=== PATIENT | male | born 1975 | race Caucasian/White ===

== ENCOUNTER → 2019-05-17 | Outpatient (CLI) | payer SELFPAY ==
[2016-02-05 06:56] VITALS: BMI 33.6
[2019-05-17 12:56] LABS: Cholesterol 250 mg/dL (200); High Density Lipoprotein 36 mg/dL; Triglycerides 463 mg/dL
[2019-05-17 12:57] LABS: Hemoglobin A1c 13.1 % (4.2-6.3)
== END | disposition home or self-care (01) ==
PROVIDERS: Family Provider Family Medicine; PCP Family Medicine; Referring Provider Family Medicine; Visit Provider Family Medicine
DX: E11.65 Type 2 diabetes mellitus with hyperglycemia (principal)
CPT/HCPCS: 36415; 80061; 83036; 83525

== ENCOUNTER 2022-05-06 11:45 | Emergency (ER) | payer MEDICAID, SELFPAY ==
[2022-05-06 11:46] VITALS: BP 140/102; PULSE 100; RESP 18; TEMP 36.6; O2SAT 95; BMI 31.9
--- NOTE | 2022-05-06 12:30 | RAD_ITS ---
STUDY: X-RAY CHEST REASON FOR EXAM: Male, 46 years old. SOB TECHNIQUE: Single AP portable view of the chest. COMPARISON: Comparison is made with prior study of 01/29/2016. FINDINGS: There is evidence of increased markings at the lung bases with areas of confluence worse in the left lung base suggest some bibasilar infiltrates. Blunting of both costophrenic angles. Normal size heart. Normal mediastinum and mercy. Normal visualized pulmonary arteries. Normal visualized aortic arch and descending thoracic aorta. Normal visualized thoracic spine. Normal visualized ribs, clavicles, and shoulders. There is no demonstrated abnormality of the visualized soft tissue structures of the upper abdomen. RAD/Chest 1 View (Portable) IMPRESSION: Bibasilar infiltrates left greater than right with blunting of both costophrenic angles. Electronically Signed: Gumaro Angeles MD at 12:42 EDT ,
--- NOTE | 2022-05-06 12:35 | EKG12_ITS ---
Test Reason : Blood Pressure : / mmHG Vent. Rate : 110 BPM Atrial Rate : 110 BPM P-R Int : 126 ms QRS Dur : 100 ms QT Int : 366 ms P-R-T Axes : 051 010 075 degrees QTc Int : 495 ms Sinus tachycardia Nonspecific T wave abnormality Abnormal ECG Confirmed by MERCEDES ABBASI, BRUCE ([id number]), editorial manager GEMMA DINERO ([id number]) on 05/07/2022 10:11:34 AM Referred By: YENNY Confirmed By:BRUCE LONG MD
--- NOTE | 2022-05-06 12:36 | EDS_ITS ---
HPI History of Present Illness Chief Complaint: Shortness of Breath Narrative Narrative: Patient presents from urgent care with 2 months of cough that is essentially nonproductive, and a few weeks of shortness of breath with dyspnea on exertion. He also has orthopnea and states that he cannot lie flat to sleep. They went to urgent care today and it was reported that he had rales on his examination. He states he may have minor leg swelling but was referred to the emergency department because of the concern for congestive heart failure. Patient denies any chest pain. No fevers or chills, no other symptoms. He states that although his past medical history includes type 2 diabetes, his blood pressure has been borderline elevated but he does not take any medications for it. [facility] Medical History Diabetes Home Medications aspirin 81 mg PO DAILY@0800 01/29/15 [History Last Taken 02/05/16] insulin glargine [Lantus Solostar U-100 Insulin] 30 units SUBCUT DAILY 01/29/15 [History Last Taken 02/05/16] sitagliptin-metformin [Janumet] 1 tab PO DAILY 01/29/15 [History Last Taken Unknown] furosemide [Lasix] 40 mg PO DAILY 5 Days #5 tab 05/06/22 [Rx Last Taken Unknown] Allergy/AdvReac Type Severity Reaction Status Date / Time metformin Allergy Unknown Verified 05/06/22 11:48 mold Allergy Unknown Verified 05/06/22 11:48 pollen extracts Allergy Unknown Verified 05/06/22 11:48 dust Allergy Unknown Uncoded 05/06/22 11:48 Social History Smoking Status: Never smoker ROS ROS ED ROS Narrative Constitutional: No fever, no chills. HEENT: No sore throat. No neck pain. No loss of vision. No rhinorrhea. Cardiovascular: No chest pain. No palpitations. Minimal pedal edema. Respiratory: Positive cough, increasing shortness of breath. Orthopnea and dyspnea on exertion for weeks. Abdominal: No abdominal pain. No nausea. No vomiting. Genitourinary: No dysuria. No hematuria. Musculoskeletal: No myalgias. No arthralgias. Neurologic: No headaches. No dizziness. No lightheadedness. Skin: No rash. No change in color. Psychiatric: No depression. No anxiety. EXAM Physical Exam Narrative Exam Narrative: Afebrile. Vital signs noted. HEENT: Normocephalic. Atraumatic. PERRL, EOMI. Neck soft and supple. No point tenderness or step off. Cardiovascular: Regular rate and rhythm. No murmurs, rubs, or gallops a ppreciated. Respiratory: No tachypnea. Bibasilar rales. Gastrointestinal: Abdomen soft, nontender, with normoactive bowel sounds. No rebound or guarding. Neurological: Awake. Alert. Nonfocal, nonlateralizing. Skin: No rash. Normal color. No pallor. Musculoskeletal: Trace symmetric bilateral pedal edema. Full range of motion extremities. Const Vital Signs: 05/06/22 11:46 05/06/22 12:09 Temperature 98 F Temperature Source Temporal Pulse Rate 100 Respiratory Rate 18 Respiratory Effort Non-Labored Short of Breath Respiratory Depth Normal Respiratory Pattern Normal Blood Pressure 140/102 H Blood Pressure Mean 114 Pulse Ox 95 Oxygen Delivery Method Room Air MDM MDM MDM Narrative Medical decision making narrative: Concern is for congestive heart failure. Pulse ox 95% on room air without evidence of hypoxia. He denies any DVT or PE risk factors. He is not having any chest pain. He has no pleuritic pain. CHF work-up was pursued. EKG demonstrates sinus tachycardia at 110 bpm without ectopy or acute ST changes. Chest x-ray interpreted by myself demonstrates blunting of the costophrenic angles bilaterally, no pneumothorax. CBC is grossly normal with a normal white count of 7.2, hemoglobin normal at 14.9, hematocrit 44.9. Normal platelet count of 214. Electrolyte panel is grossly unremarkable with glucose elevated at 220 consistent with his diabetes, but he has a low anion gap of 2. LFTs show low AST of 11 but otherwise unremarkable. High-sensitivity troponin negative at 5. This is greater than a 6-hour troponin, and the patient was not necessarily experiencing any chest pain it was more the shortness of breath. BNP is elevated at 332.6. He ambulated in the emergency department his pulse ox was 98% on room air. At this point in time, I discussed the patient with his primary care provider, Dr. Black. He requested that patient be put on Lasix 40 mg for 5 days and he will follow-up with him and obtain further outpatient imaging or referral to pulmonology and/or cardiology as needed. I feel the patient can be discharged safely home with follow-up. Return instructions to the emergency department were reviewed. Disposition is discharged home in stable condition. Patient and are agreeable to the plan. Lab Data Attestation: I reviewed the patient's lab results. Labs: Laboratory Results - last 24 hr 05/06/22 05/06/22 05/06/22 12:45 12:45 12:45 WBC 7.2 RBC 5.24 Hgb 14.9 Hct 44.9 MCV 85.7 MCH 28.4 MCHC 33.2 RDW Std Deviation 38.6 RDW Coeff of Dusty 12.4 Plt Count 214 MPV 10.2 Immature Gran % (Auto) 0.400 Neut % (Auto) 68.3 Lymph % (Auto) 22.6 [place] % (Auto) 7.2 Eos % (Auto) 0.8 Baso % (Auto) 0.7 Absolute Neuts (auto) 4.9 Absolute Lymphs (auto) 1.63 Nucleated RBC % 0 Sodium 139 Potassium 4.3 Chloride 106 Carbon Dioxide 31.0 Anion Gap 2 L BUN 16 Creatinine 1.15 Estim Creat Clear Calc 77.65 Est GFR (MDRD) Af Amer 88 Est GFR (MDRD) Non-Af 73 BUN/Creatinine Ratio 13.9 Glucose 220 H Calcium 9.4 Total Bilirubin 0.80 AST 11 L ALT 22 Alkaline Phosphatase 47 Troponin I High Sens 5 B-Natriuretic Peptide 332.6 H Total Protein 7.8 Albumin 4.0 Globulin 3.8 Albumin/Globulin Ratio 1.1 Radiography Diagnostic Testing: Clinical Impression(s) from Imaging Studies Chest X-Ray 05/06/22 12:30 IMPRESSION: Bibasilar infiltrates left greater than right with blunting of both costophrenic angles. Electronically Signed: Gumaro Angeles MD at 12:42 EDT , Discharge Plan Triage Chief Complaint: Shortness of Breath ED Provider: Fan Cueto Dx/Rx/DC Orders Clinical Impression: SOB (shortness of breath), Dyspnea on exertion, Pleural effusion, Orthopnea, CHF (congestive heart failure) Instructions: ED Heart Failure, Congestive (CHF), ED Dyspnea, ED Pleural Effusion Prescriptions: New furosemide [Lasix] 40 mg tablet 40 mg PO DAILY 5 Days Qty: 5 RF: 0 No Action aspirin 81 MG tablet,chewable 81 mg PO DAILY@0800 RF: 0 sitagliptin-metformin [Janumet] 1 EACH tablet 1 tab PO DAILY RF: 0 insulin glargine [Lantus Solostar U-100 Insulin] 100 UNITS/ML insulin pen 30 units subcut DAILY RF: 0 Primary Care Provider: Levi Black Referrals: Levi Black DO [Primary Care Provider] - 3-5 Days Disposition Disposition: Home, Self Care
[2022-05-06 12:59] LABS: Absolute Lymphocyte Count 1.63 X10^3/uL (0.83-4.51); Absolute Neutrophil Count 4.9 X10^3/uL (2.0-7.7); Basophil# 0.05 X10^3/uL; Basophil% 0.7 % (0-1); Eosinophil# 0.06 X10^3/uL; Eosinophils% 0.8 % (0-5); Hematocrit 44.9 % (40-54); Hemoglobin 14.9 g/dL (13.0-16.5); Lymphocyte # 1.63 X10^3/ul (0.83-4.51); Lymphocyte % 22.6 % (19-41); Mean Corp Hgb Conc 33.2 g/dL (32-36); Mean Corpuscular Hgb 28.4 pg (27.0-32.0); Mean Corpuscular Volume 85.7 fL (80-94); Mean Platelet Vol. 10.2 fl (6.2-12.0); Monocyte# 0.52 X10^3/uL; Monocyte% 7.2 % (0-10); NRBC Flagged by Analyzer 0 % (0-5); Neutrophil # 4.92 X10^3/uL (2.7-7.7); Neutrophil % 68.3 % (47-70); Platelet Count 214 K/mm3 (150-450); RBC Distribution Width CV 12.4 % (11.6-14.6); RBC Distribution Width SD 38.6 fl (35.1-43.9); Red Blood Count 5.24 M/mm3 (4.6-6.2); White Blood Count 7.2 K/mm3 (4.4-11.0)
[2022-05-06 13:21] LABS: BNP,B-Type NATRIURETIC PEPTIDE 332.6 pg/mL (0-100)
[2022-05-06 13:24] LABS: ALB/GLOB Ratio 1.1 RATIO (0.9-2.4); AST(SGOT) 11 U/L (15-37); Alanine Aminotransfer ALT/SGPT 22 U/L (16-61); Alkaline Phosphatase 47 U/L (45-117); Anion Gap 2 (5-15); BUN 16 mg/dL (7-18); BUN/Creat Ratio 13.9 RATIO (10-20); Calcium,Total 9.4 mg/dL (8.5-10.1); Chloride 106 mmol/L (98-107); Creatinine, Serum 1.15 mg/dL (0.70-1.30); EST Glomerular Filtration Rate 73 mL/min (>60); Est Glom Filt Rate - Afr Amer 88 mL/min (>60); Estimated Creatinine Clearance 77.65 ml/min; Globulin 3.8 g/dL (2.2-4.2); Glucose 220 mg/dL (74-106); Potassium 4.3 mmol/L (3.5-5.1); Protein, Total 7.8 g/dL (6.4-8.2); Sodium Level 139 mmol/L (136-145); Troponin-I HS 5 pg/mL (3.0-78.0)
[2022-05-06 13:49] VITALS: O2SAT 95
[2022-05-06 15:23] VITALS: BP 138/69; PULSE 82; RESP 16; O2SAT 97
== END 2022-05-06 15:23 | disposition home or self-care (01) ==
PROVIDERS: Emergency Provider Emergency Medicine; PCP Family Medicine; Visit Provider Emergency Medicine
DX: I50.9 Heart failure, unspecified (principal); E11.9 Type 2 diabetes mellitus without complications; Z79.4 Long term (current) use of insulin; J90 Pleural effusion, not elsewhere classified; R06.01 Orthopnea; Z79.899 Other long term (current) drug therapy; Z79.82 Long term (current) use of aspirin
CPT/HCPCS: 71045; 80053; 83880; 84484; 85025; 87428; 93005; 99284; A4216

== ENCOUNTER → 2022-05-14 | Outpatient (CLI) | payer MEDICAID, SELFPAY ==
[2022-05-14 12:24] LABS: Anion Gap 7 (5-15); BUN 17 mg/dL (7-18); BUN/Creat Ratio 14.7 RATIO (10-20); Calcium,Total 9.2 mg/dL (8.5-10.1); Chloride 104 mmol/L (98-107); Creatinine, Serum 1.16 mg/dL (0.70-1.30); EST Glomerular Filtration Rate 72 mL/min (>60); Est Glom Filt Rate - Afr Amer 87 mL/min (>60); Glucose 283 mg/dL (74-106); Potassium 4.3 mmol/L (3.5-5.1); Sodium Level 139 mmol/L (136-145)
[2022-05-14 12:26] LABS: BNP,B-Type NATRIURETIC PEPTIDE 263.8 pg/mL (0-100)
== END | disposition home or self-care (01) ==
LOC: MTLAB 10:24
PROVIDERS: PCP Family Medicine; Referring Provider Family Medicine; Visit Provider Family Medicine
DX: I42.9 Cardiomyopathy, unspecified (principal); Z51.81 Encounter for therapeutic drug level monitoring
CPT/HCPCS: 36415; 80048; 83880

== ENCOUNTER → 2022-06-10 | Outpatient (CLI) | payer MEDICAID, SELFPAY ==
--- NOTE | 2022-06-10 13:35 | STEWCON_ITS ---
Reason For Study: Cardiomyopathy Stress Results Protocol: Diego Protocol WITH DEFINITY Maximum Predicted HR: 174 bpm Target HR: 148 bpm % Maximum Predicted HR: 89 % Heart Stage Duration Rate BP Comment (mm:ss) (bpm) Baseline 85 118/70patient denies chest pain Stage 1 3:00 107 122/70Patient denies chest pain Stage 2 3:00 125 144/74Patient denies chest pain Stage 3 3:00 151 156/82Patient denies chest pain Patient complains of shortness of breath and leg fatigue. Patient Stage 4 0:30 155 / denies chest pain Recovery 103 128/76Pt denies chest pain Stress Duration: 9:30 mm:ss Maximum Stress HR: 155 bpm METS: 11 Baseline Echocardiogram Findings Stress Echo Wall motion Data Resting WM Intermediate WM Stress WM Resting Wall Motion Wall Motion Stress Anterio-Basal: Hypokinetic. Anterio-Basal: Normal. Lateral-Basal: Hypokinetic. Lateral-Basal: Normal. Posterior-Basal: Hypokinetic. Posterior-Basal: Normal. Infero-Basal: Hypokinetic. Infero-Basal: Normal. Basal inferoseptal: Hypokinetic. Basal inferoseptal: Normal. Basal anteroseptal: Hypokinetic. Basal anteroseptal: Normal. Mid-Anterior : Hypokinetic. Mid-Anterior : Severely Mid-Lateral : Hypokinetic. Hypokinetic. Mid-Posterior: Hypokinetic. Mid-Lateral : Severely Mid-Inferior: Hypokinetic. Hypokinetic. Mid-inferoseptal : Hypokinetic. Mid-Posterior: Severely Mid-anteroseptal : Hypokinetic. Hypokinetic. Anterior [place] : Hypokinetic. Mid-Inferior: Severely Inferior [place] : Hypokinetic. Hypokinetic. Lateral [place] : Hypokinetic. Mid-inferoseptal : Severly Septall [place] : Hypokinetic. Hypokinetic. Ejection Fraction 30 %. Mid-anteroseptal : Severly Hypokinetic. Anterior [place] : Severly Hypokinetic. Inferior [place] : Severly Hypokinetic. Lateral [place] : Severly Hypokinetic. Septall [place] : Severly Hypokinetic. Ejection Fraction 20 %. Stress Results Heart rate response: Technically adequate (percent predicted maximal heart rate greater than 85%) Blood pressure response: Normal resting blood pressure-appropriate response Cardiac rhythm: Rare PVC during exercise and recovery Functional capacity: Good Stopped secondary to: Dyspnea/leg fatigue. EKG Data Baseline ECG: Sinus rhythm; diffuse nonspecific ST/T wave abnormality. Peak exercise EC to [address] segment depression in leads II, 3, aVF, with gradual resolution towards baseline in recovery. Symptoms with Stress No complaint of chest discomfort during exercise or recovery. ECHO/Stress Test Echo W/Contrast Interpretation Summary Contrast injection performed Abnormal (technically adequate: Percent predicted maximal heart rate greater th an 85%) stress echocardiogram Ordering Physician: Levi Black Referring Physician: Levi Black Performed By: Damari Montgomery RDCS
== END | disposition home or self-care (01) ==
LOC: CVS 13:33
PROVIDERS: PCP Family Medicine; Referring Provider Family Medicine; Visit Provider Family Medicine
DX: R06.00 Dyspnea, unspecified (principal); I51.9 Heart disease, unspecified
CPT/HCPCS: 93350; 93017; Q9957; A4216; C8928

== ENCOUNTER → 2022-06-12 | Outpatient (CLI) | payer MEDICAID, SELFPAY ==
[2022-06-12 17:37] LABS: Absolute Lymphocyte Count 1.78 X10^3/uL (0.83-4.51); Absolute Neutrophil Count 5.5 X10^3/uL (2.0-7.7); Basophil# 0.09 X10^3/uL; Basophil% 1.1 % (0-1); Eosinophil# 0.43 X10^3/uL; Eosinophils% 5.2 % (0-5); Hematocrit 45.2 % (40-54); Hemoglobin 14.8 g/dL (13.0-16.5); Lymphocyte # 1.78 X10^3/ul (0.83-4.51); Lymphocyte % 21.4 % (19-41); Mean Corp Hgb Conc 32.7 g/dL (32-36); Mean Corpuscular Hgb 28.1 pg (27.0-32.0); Mean Corpuscular Volume 85.8 fL (80-94); Mean Platelet Vol. 10.5 fl (6.2-12.0); Monocyte# 0.51 X10^3/uL; Monocyte% 6.1 % (0-10); NRBC Flagged by Analyzer 0 % (0-5); Neutrophil # 5.46 X10^3/uL (2.7-7.7); Neutrophil % 65.8 % (47-70); Platelet Count 199 K/mm3 (150-450); RBC Distribution Width CV 12.7 % (11.6-14.6); RBC Distribution Width SD 39.5 fl (35.1-43.9); Red Blood Count 5.27 M/mm3 (4.6-6.2); White Blood Count 8.3 K/mm3 (4.4-11.0)
[2022-06-12 18:28] LABS: Anion Gap 4 (5-15); BUN 21 mg/dL (7-18); BUN/Creat Ratio 18.8 RATIO (10-20); Calcium,Total 9.6 mg/dL (8.5-10.1); Chloride 106 mmol/L (98-107); Creatinine, Serum 1.12 mg/dL (0.70-1.30); EST Glomerular Filtration Rate 75 mL/min (>60); Est Glom Filt Rate - Afr Amer 90 mL/min (>60); Glucose 151 mg/dL (74-106); Potassium 3.8 mmol/L (3.5-5.1); Sodium Level 140 mmol/L (136-145); Thyroid Stim Hormone (TSH) 1.53 uIU/mL (0.358-3.74)
== END | disposition home or self-care (01) ==
LOC: LAB 16:56
PROVIDERS: PCP Family Medicine; Referring Provider Internal Medicine Cardiovascular Disease; Visit Provider Internal Medicine Cardiovascular Disease
DX: I42.8 Other cardiomyopathies (principal); I10 Essential (primary) hypertension; E78.5 Hyperlipidemia, unspecified
CPT/HCPCS: 36415; 80048; 84443; 85025

== ENCOUNTER 2022-06-16 09:22 | Observation (INO) | payer MEDICAID, SELFPAY ==
[2022-06-13 10:01] VITALS: BMI 30.7
[2022-06-16] VITALS (15 sets, daily range): BP systolic 89–103; BP diastolic 69–82; PULSE 80–98; RESP 12–16; TEMP 36.4–36.9; O2SAT 93–98; BMI 29.5
--- NOTE | 2022-06-16 08:27 | CL.D_ITS ---
Patient Name: CARLOZ GUERRERO Study Date: 06/16/2022 Performing: Leighton Person MD Ht: 68.11 inches 173 cm : 1975 Wt: 202.83 lbs 92 kg Age: 46 Gender: male BSA: 2.06 PROCEDURE(S) PERFORMED [id number]-([id number])LHC/COR/LV CLINICAL PROFILE AND INDICATIONS Indications: LV Dysfunction Heart Failure: NYHA Class: 2, Newly Diagnosed: Yes, Heart Failure Type: Systolic Stress/Imaging Stress Echocardiogram: Yes Result: Positive High RiskStress Echocardiogram: Positi ve High Risk CAD Presentations: Other: sob CONCLUSIONS Severe [place] vessel disease with significant three-vessel stenosis mild calcification and severe lef t ventricular systolic dysfunction. RECOMMENDATIONS Referred for immediate PCI DESCRIPTION OF PROCEDURE The patient arrived to the procedure lab. The risks and benefits of the procedure as well as a full d escription of our services here and current unavailability of surgical backup were fully explained to the patient and/or their significant other prior to the catheterization. The Timeout was completed, verifying the correct patient and procedure. The patient's procedural site was prepped and draped in the usual fashion. Local anesthetic was given subcutaneously to right radial region with Lidocaine 2% . Using a modified Seldinger technique, arterial access was obtained via the right radial artery, a 6 Fr sheath was inserted. Left Coronary Artery selective angiography was performed in multiple views u sing a 5 Fr. 4.0 [place] catheter. Right Coronary Artery selective angiography was then performed in mu ltiple views using a 5 Fr. 4.0 [place] catheter. Left Ventriculography was performed in GRANADOS projection using a 5 Fr. Pigtail catheter. LV to AO pullback pressures were then recorded. CORONARY ANGIOGRAPHY DOMINANCE: Co- Dominant LEFT HEART ASSESSMENT Left Ventricular Ejection Fraction: by LV Gram 20 % Global Hypokinesis - Severe Depressed Left Ventricular systolic function LEFT MAIN: Angiographically normal LEFT ANTERIOR DESCENDING ARTERY: Moderately diseased in the proximal and mid segment in the mid to di stal segment with a 70% long stenosis. CIRCUMFLEX ARTERY: Mid segment with a 70% stenosis prior to the takeoff of of the obtuse marginal bra [facility]. RIGHT CORONARY ARTERY: Small vessel with a distal 60-70% stenosis noted. COMPLICATIONS No Complications PROCEDURE MEDICATIONS Versed 1 mg IV Fentanyl 50 mcg IV Versed 1 mg IV Oxygen: 2 L/min via nasal cannula Brilinta 180 mg PO @ 06/16/2022 08:20:14 Heparin given IA 06/16/2022 08:01:29 Heparin 4000 unit(s) IV 06/16/2022 08:42:59 Nitro 100 mcg IC 06/16/2022 09:08:03 Verapamil 2.5mg, Ntg 100mcgs, 2000 units of Heparin given IA 06/16/2022 08:01:29 SUMMARY OF HEMODYNAMIC DATA Time AIR REST ECG 07:11:21 ECG 07:40:09 AO 86/66 (75) SA 08:04:32 LV 93/7, 10 08:14:20 LV 92/10, 13 08:14:23 LV 92/12, 15 08:15:24 LV 91/12, 15 08:15:27 LVp 91/12, 16 08:15:32 AOp 93/67 (78) 08:15:39 Signed By Leighton Person MD On 06/16/2022 9:21:13 AM Leighton Person MD
[2022-06-16] MEDS: Insulin Glargine-YFGN 100 UNIT/ML Pen 70 UNIT SC (11:31)
[2022-06-16] MEDS: Atorvastatin Calcium 20 MG Tablet PO (11:31)
[2022-06-16] MEDS: Furosemide 40 MG Tablet PO (11:31)
[2022-06-16] MEDS: LINAGLIPTIN 5 MG TABLET PO (11:31)
[2022-06-16] MEDS: Empagliflozin 10 MG Tablet PO (11:32)
--- NOTE | 2022-06-16 11:34 | CRPHASE1 ---
Patient Communication Former Patient:: Phase II PHII Cardiac Rehab Discussed with Patient:: Yes Guide to Cardiac Rehab Given to Patient:: Yes Cardiac Rehab Facility Choice List Given to Patient:: Yes Choice Program [facility] CR PHII:: Communication Given to CR, Refer to [facility] Soa Architect:: Adelaida Farfan Refer Phase II Cardiac Rehab:: Yes Sessions:: 36 sessions - 3 days/wk, 12 weeks PHII Cardiac Rehab Referral:: [facility] Cardiac Rehabilitation Info Cardiac Rehabilitation Program Information: Cardiac Rehabilitation is important for patients like you who are recovering from a heart problem. Cardiac rehabilitation programs are recognized as integral to the continued care of the patient with coronary heart disease. The cardiac rehabilitation program is designed to optimize a patient's physical, psychological, and social functioning. Health inpatient care manager rn work in cardiac rehabilitation programs and assist you with getting the treatments you need to get stronger and healthier - like exercise, healthy eating habits, and medications. Cardiac rehabilitation has been show to help people with heart problems live longer and have better life enjoyment than people who do not go to cardiac rehabilitation. Please contact the Cardiac Rehabilitation Program at [facility] at in two weeks if you have not heard from them.
--- NOTE | 2022-06-16 11:35 | CRPH1.INST_ITS ---
General Education CAD and cardiac anatomy and function:: Patient communicates acknowledgment, Family communicates acknowledgment Explanation of diagnoses and procedures:: Patient communicates acknowledgment, Family communicates acknowledgment Sign/Symptoms of NH:: Patient communicates acknowledgment, Family communicates acknowledgment Antiplatelet therapy: Patient communicates acknowledgment, Family communicates acknowledgment Proper use of NTG-SL: Patient communicates acknowledgment, Family communicates acknowledgment Emergency procedures and activation of EMS: Patient communicates acknowledgment, Family communicates acknowledgment Compliance of all prescribed medications: Patient communicates acknowledgment, Family communicates acknowledgment Smoking Patient Nicotine/Smoking Risk Factors Are:: Non-smoker Dyslipidemia Patient Dyslipidemia Risk Factors Are:: Total Cholesterol, Triglycerides, HDL, LDL Recommendations Include:: Lipid profile not available, Reviewed NCEP/ATP guidelines, Therapeutic Lifestyle Change dietary guidelines Dyslipidemia Response Code:: Patient communicates acknowledgment, Family communicates acknowledgment Overweight/Obesity Patient Overweight/Obesity Risk Factors Are:: Overweight = 26-29 Recommendations Include:: Weight loss of 5-10%, Reduced calorie diet, Exercise 5-7 times/week Overweight/Obesity:: Patient communicates acknowledgment, Family communicates acknowledgment Hypertension Recommendations Include:: Maintain BP <130/85, BP <130/80 if diabetic, DASH dietary guidelines, Decrease/maintain normal body weight, Moderation of ETOH Hypertension:: Patient communicates acknowledgment, Family communicates acknowledgment Heart Disease Patient Heart Disease Risk Factors Are:: Family history of heart disease < 65 years old Recommendations Include:: Educated family members of their risk, Educated family members of importance of prevention of heart disease Heart Disease Response Code:: Patient communicates acknowledgment, Family communicates acknowledgment Diabetes Patient Diabetes Risk Factors Are:: Elevated blood sugars Recommendations Include:: Maintain fasting blood sugars 70-110 md/dL, Maintain H gbA1c of 6% or less, Monitor blood sugar as prescribed, Diabetic dietary guidelines, Decrease/maintain body weight Diabetes:: Patient communicates acknowledgment, Family communicates acknowledgment Metabolic Syndrome Patient Metabolic Syndrome Risk Factors Are [3 of 5]:: Fasting blood sugar > 100 mg/dL, Waist circumference > 35 [female] or 40 [male], High triglyceride >150, Hypertension, Low HDL <40 [male] or < 50 [female] Recommendations Include:: Reinforce compliance to risk factor modifications, Patient is diabetic, Encouraged follow-up with Primary Care Physician Metabolic Syndrome Response Code:: Patient communicates acknowledgment, Family communicates acknowledgment Sedentary Patient Sedentary Risk Factors Are:: Lack of regular exercise Recommendations Include:: Aerobic exercise 5-7 times/week for 20-30 minutes continuously, Benefits of regular exercise, Discussed home walking program, Monitored Outpatient Cardiac Rehab Sedentary Response Code:: Patient communicates acknowledgment Stress Recommendations Include:: Identification of stressors, and assessment of coping skills, Stress management techniques Stress Response Code:: Patient communicates acknowledgment, Family communicates acknowledgment
[2022-06-16 12:05] LABS: Bedside Glucose 107 mg/dL (74-106)
[2022-06-16] MEDS: Carvedilol 3.125 MG TABLET PO ×2 (12:07→22:22)
--- NOTE | 2022-06-16 12:46 | CL.I_ITS ---
Patient Name: CARLOZ GUERRERO Study Date: 06/16/2022 Performing: Danyell Farfan MD Ht: 68 inches 173 cm : 1975 Wt: 203.1 lbs 92 kg Age: 46 Gender: male BSA: 2.06 PROCEDURE(S) PERFORMED IC12-([id number])MEENU W/WO PTCA, SINGLE CORONARY ARTERY IC12-([id number])MEENU W/WO PTCA, SINGLE CORONARY ARTERY CLINICAL PROFILE AND CO-MORBIDITIES Indications: LV Dysfunction Heart Failure: NYHA Class: 2, Newly Diagnosed: Yes, Heart Failure Type: Systolic Stress/Imaging Stress Echocardiogram: Yes Result: Positive High Risk Stress Echocardiogram: Posit denisa High Risk CAD Presentations: Other: sob CONCLUSIONS Successful PCI of mLCx and dRCA with MEENU RECOMMENDATIONS Pt. should return for PCI of LAD in 2-4 weeks DESCRIPTION OF PROCEDURE The patient arrived to the procedure lab. The risks and benefits of the procedure as well as a full d escription of our services here and current unavailability of surgical backup were fully explained to the patient and/or their significant other prior to the catheterization. The Timeout was completed, verifying the correct patient and procedure. The patient's procedural site was prepped and draped in the usual fashion. Local anesthetic was given subcutaneously to right radial region with Lidocaine 2% Using a modified Seldinger technique,arterial access was obtained via the right radial artery, a 6Fr sheath was inserted. Left Coronary Artery selective angiography was performed in multiple views usin g a 5 Fr. 4.0 [place] catheter. Right Coronary Artery selective angiography was then performed in multi ple views using a 5 Fr. 4.0 [place] catheter. Left Ventriculography was performed in GRANADOS projection usi ng a 5 Fr. Pigtail catheter. LV to AO pullback pressures were then recorded.The images were reviewed and options discussed. A decision was then made to proceed with an Intervention, IVUS o r other adjunct procedure. xb3 Guide catheter was inserted and engaged into the LCA. bmw Guide wire was advanced to the Circ umflex. Angiogram performed pre balloon dilatation. emerge 2.5 x 12 Balloon catheter was advanced acr oss lesion in the circumflex, mid. PTCA balloon inflated at 10 atms for 14 secs. osiro 3.0 x 1 3 Drug Eluting stent was advanced across the lesion in the circumflex, mid. Angiogram performed post stent deployment. jr 4 Guide catheter was inserted and engaged into the RCA. bmw Guide wire was advanced to the RCA. emerge 2.00 x 15 Balloon catheter was advanced across lesion in the right coronary, distal. PTCA balloon inflated at 6 atms for 8 secs. PTCA balloon inflated at 6 atms for 21 secs. osiro 2.25 x 18 Drug Eluting stent was advanced across the lesion in the right coronary, distal. Angiogram perfo rmed post stent deployment. nc emerge 2.5 x 12 Balloon catheter was inserted post stent. Angiogram pe rformed post balloon dilatation. The arterial sheath was pulled and a TR Band was applied for hemostasis INTERVENTION INFORMATION LESION SITE: Circumflex (Mid) Lesion Complexity: High/C, chronic total occlusion: No, lesion at bifurcation: No, thrombus present: No, lesion length: 12 mm, culprit lesion: Yes, Previously treated lesion: No Pre Stenosis: 80 % Pre intervention RAFIA flow: 3 PROCEDURE: Drug Eluting Stent with pre dilatation. Post Stenosis: 0 % Post intervention RAFIA flow: 3 Lesion Devices: James Sci EMERGE MR 2.50x12 BALLOON [employer] [place] MR MEENU 3.0x13 LESION SITE: RCA (Distal) Lesion Complexity: High/C, chronic total occlusion: No, lesion at bifurcation: Yes, thrombus present: No, lesion length: 12 mm, culprit lesion: Yes, Previously treated lesion: No Pre Stenosis: 80 % Pre intervention RAFIA flow: 3 PROCEDURE: Drug Eluting Stent with pre dilatation. Post Stenosis: 0 % Post intervention RAFIA flow: 3 Lesion Devices: James Sci EMERGE MR 2.00x15 BALLOON [employer] [facility] MR MEENU 2.25x18 James Sci [place] EMERGE MR 2.50x12 BALLOON COMPLICATIONS No Complications PROCEDURE MEDICATIONS Versed 1 mg IV Fentanyl 50 mcg IV Versed 1 mg IV Oxygen: 2 L/min via nasal cannula Brilinta 180 mg PO @ 06/16/2022 08:20:14 Heparin given IA 06/16/2022 08:01:29 Heparin 4000 unit(s) IV 06/16/2022 08:42:59 Nitro 100 mcg IC 06/16/2022 09:08:03 Verapamil 2.5mg, Ntg 100mcgs, 2000 units of Heparin given IA 06/16/2022 08:01:29 SUMMARY OF HEMODYNAMIC DATA Time AIR REST ECG 07:11:21 ECG 07:40:09 AO 86/66 (75) SA 08:04:32 LV 93/7, 10 08:14:20 LV 92/10, 13 08:14:23 LV 92/12, 15 08:15:24 LV 91/12, 15 08:15:27 LVp 91/12, 16 08:15:32 AOp 93/67 (78) 08:15:39 Signed By Danyell Farfan MD On 06/16/2022 12:47:36 PM Danyell Farfan MD
--- NOTE | 2022-06-16 17:11 | EKG12_ITS ---
Test Reason : PCI Blood Pressure : / mmHG Vent. Rate : 085 BPM Atrial Rate : 085 BPM P-R Int : 144 ms QRS Dur : 098 ms QT Int : 392 ms P-R-T Axes : 011 -29 113 degrees QTc Int : 466 ms Normal sinus rhythm Minimal voltage criteria for LVH, may be normal variant ( R in aVL ) T wave abnormality, consider anterolateral ischemia Prolonged QT Abnormal ECG When compared with ECG of 16-JUN-2022 17:20, MANUAL COMPARISON REQUIRED, DATA IS UNCONFIRMED Confirmed by MERCEDES ABBASI, LEIGHTON ([id number]), graphic editor GEMMA DINERO ([id number]) on 06/18/2022 12:49:12 PM Referred By: Leighton Person Confirmed By:LEIGHTON PERSON MD
[2022-06-16 17:40] LABS: Bedside Glucose 179 mg/dL (74-106)
[2022-06-16] MEDS: TICAGRELOR 90 MG TABLET PO (22:22)
[2022-06-17 03:00] VITALS: PULSE 87
[2022-06-17 03:54] VITALS: BP 98/73; PULSE 83; RESP 16; TEMP 36.3; O2SAT 95
[2022-06-17 05:39] LABS: Hematocrit 44.3 % (40-54); Hemoglobin 14.7 g/dL (13.0-16.5); Mean Corp Hgb Conc 33.2 g/dL (32-36); Mean Corpuscular Volume 84.4 fL (80-94); Mean Platelet Vol. 10.9 fl (6.2-12.0); Platelet Count 176 K/mm3 (150-450); RBC Distribution Width CV 12.6 % (11.6-14.6); RBC Distribution Width SD 38.4 fl (35.1-43.9); Red Blood Count 5.25 M/mm3 (4.6-6.2); White Blood Count 9.9 K/mm3 (4.4-11.0)
[2022-06-17 06:07] LABS: ALB/GLOB Ratio 1.1 RATIO (0.9-2.4); AST(SGOT) 22 U/L (15-37); Alanine Aminotransfer ALT/SGPT 23 U/L (16-61); Albumin, Serum 3.6 g/dL (3.2-5.0); Alkaline Phosphatase 46 U/L (45-117); Anion Gap 6 (5-15); BUN 25 mg/dL (7-18); BUN/Creat Ratio 19.4 RATIO (10-20); Calcium,Total 9.2 mg/dL (8.5-10.1); Chloride 99 mmol/L (98-107); Creatinine, Serum 1.29 mg/dL (0.70-1.30); EST Glomerular Filtration Rate 64 mL/min (>60); Est Glom Filt Rate - Afr Amer 77 mL/min (>60); Estimated Creatinine Clearance 71.55 ml/min; Globulin 3.3 g/dL (2.2-4.2); Glucose 125 mg/dL (74-106); Potassium 3.5 mmol/L (3.5-5.1); Protein, Total 6.9 g/dL (6.4-8.2); Sodium Level 138 mmol/L (136-145)
[2022-06-17 07:07] VITALS: PULSE 90
--- NOTE | 2022-06-17 07:10 | PCM.PN.CARD ---
Subjective Subjective Patient was seen and evaluated. Appears to be doing quite well. Had unremarkable night. Objective Data Vital Signs: Vital Signs Temp Pulse Resp BP Pulse Ox O2 Del Method 97.4 F L 83 16 98/73 95 Room Air 06/17/22 03:54 06/17/22 03:54 06/17/22 03:54 06/17/22 03:54 06/17/22 03:54 06/17/22 03:56 Oxygen Delivery Method Room Air Weight: 200 lb 1 oz Body Mass Index (BMI) 29.5 Intake & Output: Intake and Output for Last 24 Hours 06/15/22 06/16/22 06/17/22 23:59 23:59 23:59 Intake Total 1080 / 1080 Balance 1080 / 1080 Lab / Micro Data Result Diagrams: 06/17/22 04:07 06/17/22 04:07 Labs: Laboratory Results - last 24 hr 06/16/22 11:26: POC Glucose 107 H 06/16/22 16:56: POC Glucose 179 H 06/17/22 04:07: WBC 9.9, RBC 5.25, Hgb 14.7, Hct 44.3, MCV 84.4, MCH 28.0, MCHC 33.2, RDW Std Deviation 38.4, RDW Coeff of Dusty 12.6, Plt Count 176, MPV 10.9 06/17/22 04:07: Sodium 138, Potassium 3.5, Chloride 99, Carbon Dioxide 33.0 H, Anion Gap 6, BUN 25 H, Creatinine 1.29, Estim Creat Clear Calc 71.55, Est GFR (MDRD) Af Amer 77, Est GFR (MDRD) Non-Af 64, BUN/Creatinine Ratio 19.4, Glucose 125 H, Calcium 9.2, Total Bilirubin 0.60, AST 22, ALT 23, Alkaline Phosphatase 46, Total Protein 6.9, Albumin 3.6, Globulin 3.3, Albumin/Globulin Ratio 1.1 Cardiology Labs/Tests 06/17/22 04:07: WBC 9.9, RBC 5.25, Hgb 14.7, Hct 44.3, MCV 84.4, MCH 28.0, MCHC 33.2, Plt Count 176, MPV 10.9 06/17/22 04:07: Sodium 138, Potassium 3.5, Chloride 99, Carbon Dioxide 33.0 H, Anion Gap 6, BUN 25 H, Creatinine 1.29, Est GFR (MDRD) Af Amer 77, Est GFR (MDRD) Non-Af 64, BUN/Creatinine Ratio 19.4, Glucose 125 H, Calcium 9.2, Total Bilirubin 0.60 Rhythm: EKG: ECHO: Stress Test: Cardiac Cath: PCI: CT Surgery: Holter monitor: EPS: PPM: CXR: Chest CT Scan: Physical Exam Const alert, oriented x3 and no apparent distress General Appearance: cooperative HEENT hearing grossly normal bilaterally Head and Scalp: atraumatic Eyes EOMs intact bilaterally Neck General: normal visual inspection Chest inspection of chest normal and palpation of chest normal Resp normal respiratory effort Auscultation: clear to auscultation bilaterally Cardio regular rate, regular rhythm, S1 normal heart sound and S2 normal heart sound Jugular Venous Distention: JVD GI normal to inspection, nondistended, normoactive bowel sounds Extremity normal capillary refill and no pedal edema Peripheral Pulses: Yes pulses 2+ throughout and femoral pulses present Skin no rashes or lesions noted Neuro oriented x3 and CN's II-XII intact bilaterally Psych Appearance: grossly normal and appropriate Assessment & Plan Assessment/Plan (1) History of coronary artery stent placement: PLAN: He underwent cardiac catheterization yesterday and underwent stenting of the right coronary artery as well as the left circumflex artery. He has residual disease noted in the left anterior descending artery and will be brought back in a few weeks for interval PCI. In the meantime he will continue his current medications with aspirin and clopidogrel and statin. (2) Ischemic cardiomyopathy: PLAN: He does have evidence of ischemic cardiomyopathy with an estimated ejection fraction of 20 to 25%. He has been started on guideline directed medical therapy. He will continue with the beta-nadiya Continue with AISLINN inhibitor which eventually was switched over to Entresto Continue with Lasix And continue with his SGLT 2 inhibitor. (3) Essential hypertension: PLAN: He has a history of high blood pressure and this was treated with his beta-nadiya and AISLINN inhibitor. He can be discharged for outpatient follow-up.
--- NOTE | 2022-06-17 07:15 | PCM.DC ---
Discharge Instructions Diet Discharge Diet: No restrictions Activity Discharge Activity: Return to Normal Activity Additional Activity Instructions:: You must have someone drive you home. Do not drive until instructed by your doctor. You must have someone stay with you all night after your test. Rest in bed or on the couch until the next morning. Limit the number of times you go up and down stairs the day of your test. Apply pressure to the puncture site if you sneeze or cough. Dressing / Incision Call your doctor if your incision/area has: Increased Pain/ Swelling, Increased Redness, Foul Smelling Discharge and Swelling at the incision site Call your doctor if you observe: Fever of 101 or Higher Additional Dressing/Incision Instructions:: Keep the dressing (bandage) on until the next morning. You may then shower, but do not take a tub bath for 5 days after your test. It is normal to have some tenderness and discomfort at the puncture site. Sometimes bruising also occurs. However, if pain, numbness, or coldness occurs below the puncture site (in your leg, toes, arms or fingers) call your doctor at once. You may have a small, marble sized knot at the puncture site. This is normal. Do not rub it. It will go away in 4-6 weeks. Bleeding can occur from the area where the puncture was done. Blood may spurt or drip from the site. If blood spurts, apply pressure right away to stop bleeding and call 911. Although rare, bleeding into the tissue (hematoma) can also occur. If this happens, a large, firm area goose egg under the skin will appear. If any of these occur, lie down as flat as you can and have someone apply firm pressure to the cath site with a gauze pad or a clean washcloth for 10-15 minutes. Call 911 or go to the Emergency Department. Follow Up Care Test Results: Test results from this visit will be discussed in further detail at your follow-up appointment, if applicable. Discharge Plan Admission Admit Date/Time: 06/16/22 09:22 Attending Provider: Leighton Person Primary Care Provider: Levi Black Discharge Orders/Prescriptions Prescriptions: New carvedilol 3.125 mg Tablet 3.125 mg PO BID Qty: 180 1RF Brilinta 90 mg Tablet 90 mg PO BID Qty: 180 2RF Continued Januvia 100 mg tablet 100 mg PO DAILY Label Comments: TAKE 1 TABLET BY MOUTH EVERY DAY Levemir FlexTouch U-100 Insuln 100 unit/mL (3 mL) insulin pen 70 unit subcut DAILY lisinopril 5 mg tablet 5 mg PO DAILY Invokana 100 mg tablet 100 mg PO DAILY rosuvastatin 10 mg tablet 10 mg PO DAILY aspirin 81 MG tablet,chewable 81 mg PO DAILY@0800 furosemide [Lasix] 40 mg tablet 40 mg PO DAILY 5 Days Qty: 5 0RF Referrals / Follow Up: Levi Black, [Primary Care Provider] - Disposition Disposition (needs filled in before D/C Order can be placed): Home, Self Care
[2022-06-17 07:20] VITALS: O2SAT 95
[2022-06-17 07:57] VITALS: BP 105/78; PULSE 87; RESP 12; TEMP 36.6; O2SAT 97
[2022-06-17] MEDS: Insulin Glargine-YFGN 100 UNIT/ML Pen 70 UNIT SC (08:09)
[2022-06-17] MEDS: Aspirin 81 MG TAB.CHEW PO (08:09)
[2022-06-17] MEDS: Atorvastatin Calcium 20 MG Tablet PO (08:09)
[2022-06-17] MEDS: Furosemide 40 MG Tablet PO (08:09)
[2022-06-17] MEDS: TICAGRELOR 90 MG TABLET PO (08:09)
[2022-06-17] MEDS: LINAGLIPTIN 5 MG TABLET PO (08:09)
[2022-06-17] MEDS: Carvedilol 3.125 MG TABLET PO (08:09)
[2022-06-17] MEDS: Empagliflozin 10 MG Tablet PO (08:09)
[2022-06-17] MEDS: Lisinopril 5 MG Tablet PO (08:09)
[2022-06-17 08:36] LABS: Bedside Glucose 230 mg/dL (74-106)
--- NOTE | 2022-06-17 09:17 | CASEMGMT ---
Pt to be sent home on Brilinta and med e-scribed to [facility] previously. Call to [facility] and per tech, pt has no co-pay for Brilinta. Felipe RÍOS CM
--- NOTE | 2022-06-17 09:49 | PHA.DC.MC ---
Pharmacy Service has performed discharge medication reconciliation and counseling for this patient. 1. CARVEDILOL 3.125MG PO BID 2. TICAGRELOR 90MG PO BID The patient's discharge medication list was reviewed for discrepancies and discrepancies were resolved. Home Medications aspirin 81 mg chewable tablet 81 mg PO DAILY@0800 01/29/15 furosemide 40 mg tablet (Lasix) 40 mg PO DAILY 5 days #5 tabs 05/06/22 canagliflozin 100 mg tablet (Invokana) 100 mg PO DAILY 06/12/22 insulin detemir U-100 100 unit/mL (3 mL) subcutaneous pen (Levemir FlexTouch U-100 Insulin) 70 unit subcut DAILY 06/12/22 lisinopril 5 mg tablet 5 mg PO DAILY 06/12/22 rosuvastatin 10 mg tablet 10 mg PO DAILY 06/12/22 sitagliptin 100 mg tablet (Januvia) 100 mg PO DAILY 06/12/22 carvedilol 3.125 mg tablet 3.125 mg PO BID #180 tabs 06/17/22 ticagrelor 90 mg tablet (Brilinta) 90 mg PO BID #180 tabs 06/17/22 The patient was counseled on the following discharge medications and changes in medications for homegoing were reviewed. The Reason for Use, instructions for use, and potential side effects were reviewed for all new medications. The patient's questions regarding all of their medications were answered. The patient was able to verbally demonstrate an understanding of their discharge medications.
--- NOTE | 2022-06-17 10:00 | EKG12_ITS ---
Test Reason : post pci Blood Pressure : / mmHG Vent. Rate : 092 BPM Atrial Rate : 092 BPM P-R Int : 144 ms QRS Dur : 096 ms QT Int : 360 ms P-R-T Axes : 022 -23 125 degrees QTc Int : 445 ms Normal sinus rhythm T wave abnormality, consider anterolateral ischemia Abnormal ECG When compared with ECG of 06-MAY-2022 12:45, T wave inversion now evident in Anterior leads Confirmed by MERCEDES ABBASI, LEIGHTON ([id number]), sound editor GEMMA DINERO ([id number]) on 06/18/2022 12:49:44 PM Referred By: Leighton Person Confirmed By:LEIGHTON PERSON MD
== END 2022-06-17 07:14 | disposition home or self-care (01) ==
LOC: PCU 06-17 07:14
PROVIDERS: Specialist; Admitting Provider Internal Medicine Cardiovascular Disease; PCP Family Medicine; Referring Provider Internal Medicine Cardiovascular Disease; Visit Provider Internal Medicine Cardiovascular Disease
DX: I25.10 Atherosclerotic heart disease of native coronary artery without angina pectoris (principal); I42.8 Other cardiomyopathies; I50.22 Chronic systolic (congestive) heart failure; I11.0 Hypertensive heart disease with heart failure; E11.9 Type 2 diabetes mellitus without complications; Z79.4 Long term (current) use of insulin; I25.5 Ischemic cardiomyopathy; Z79.899 Other long term (current) drug therapy; Z79.82 Long term (current) use of aspirin; E66.9 Obesity, unspecified; Z68.30 Body mass index [BMI] 30.0-30.9, adult; E78.5 Hyperlipidemia, unspecified
CPT/HCPCS: C1887 ×2; C1725 ×2; C1894; Q9967; C1769 ×4; 36415; 80053; 82962; 85027; 92928; 93005; 93458; 99152; 99153; 99218; C1874; J7030; C9600; G0378; J1327

== ENCOUNTER 2022-07-01 12:03 | Observation (INO) | payer MEDICAID, SELFPAY ==
[2022-06-26 17:32] LABS: Anion Gap 5 (5-15); BUN 24 mg/dL (7-18); BUN/Creat Ratio 15.7 RATIO (10-20); Calcium,Total 9.3 mg/dL (8.5-10.1); Chloride 101 mmol/L (98-107); Creatinine, Serum 1.53 mg/dL (0.70-1.30); EST Glomerular Filtration Rate 52 mL/min (>60); Est Glom Filt Rate - Afr Amer 63 mL/min (>60); Glucose 227 mg/dL (74-106); Potassium 3.9 mmol/L (3.5-5.1); Sodium Level 137 mmol/L (136-145)
[2022-06-30 07:56] VITALS: BMI 30.7
[2022-07-01] VITALS (18 sets, daily range): BP systolic 105–118; BP diastolic 76–88; PULSE 62–87; RESP 10–20; TEMP 36.5–37.1; O2SAT 94–100; BMI 29.2
--- NOTE | 2022-07-01 12:15 | EKG12_ITS ---
Test Reason : AM EKG Blood Pressure : / mmHG Vent. Rate : 080 BPM Atrial Rate : 080 BPM P-R Int : 146 ms QRS Dur : 096 ms QT Int : 400 ms P-R-T Axes : 030 -13 -69 degrees QTc Int : 461 ms Normal sinus rhythm T wave abnormality, consider lateral ischemia Prolonged QT Abnormal ECG When compared with ECG of 01-JUL-2022 12:21, MANUAL COMPARISON REQUIRED, DATA IS UNCONFIRMED Confirmed by MERCEDES ABBASI, BRUCE ([id number]), social media editor GEMAM DINERO ([id number]) on 07/03/2022 1:14:39 PM Referred By: Adelaida Farfan Confirmed By:BRUCE LONG MD
--- NOTE | 2022-07-01 12:21 | EKG12_ITS ---
Test Reason : PCI Blood Pressure : / mmHG Vent. Rate : 070 BPM Atrial Rate : 070 BPM P-R Int : 138 ms QRS Dur : 098 ms QT Int : 434 ms P-R-T Axes : 014 -16 000 degrees QTc Int : 468 ms Normal sinus rhythm T wave abnormality, consider anterolateral ischemia Prolonged QT Abnormal ECG When compared with ECG of 17-JUN-2022 05:37, No significant change was found Confirmed by MERCEDES ABBASI, BRUCE ([id number]), technical writer and editor GEMMA DINERO ([id number]) on 07/03/2022 1:17:22 PM Referred By: Adelaida Farfan Confirmed By:BRUCE LONG MD
[2022-07-01] MEDS: 0.9% Normal Saline 1,000 ML 60 ML IV (12:28)
--- NOTE | 2022-07-01 12:58 | CL.I_ITS ---
Patient Name: CARLOZ GUERRERO Study Date: 07/01/2022 Performing: Danyell Farfan MD Ht: 68.11 inches 173 cm : 1975 Wt: 202.83 lbs 92 kg Age: 47 Gender: male BSA: 2.06 PROCEDURE(S) PERFORMED IC12-([id number])MEENU W/WO PTCA, SINGLE CORONARY ARTERY IC02-([id number])PTCA, EACH ADD'L CORONARY ART, SAME MAJOR CLINICAL PROFILE AND CO-MORBIDITIES Indications: Staged PCI of LAD Heart Failure: Newly Diagnosed: No CONCLUSIONS Successful MEENU to proximal and mid LAD. PTCA alone to small diagonal branch RECOMMENDATIONS DESCRIPTION OF PROCEDURE The patient arrived to the procedure lab. The risks and benefits of the procedure as well as a full d escription of our services here and current unavailability of surgical backup were fully explained to the patient and/or their significant other prior to the catheterization. The Timeout was completed, verifying the correct patient and procedure. The patient's procedural site was prepped and draped in the usual fashion. Local anesthetic was given subcutaneously to right radial region with Lidocaine 2% . Using a modified Seldinger technique, arterial access was obtained via the right radial artery, a 6 Fr sheath was inserted.. Left Coronary Artery selective angiography was performed in multiple views u sing a 5 Fr. 4.0 [place] catheter xb3 cordis Guide catheter was inserted and engaged into the LCA. bmw Guide wire was advanced to t he LAD. sc euphora 2.5 x15 Balloon catheter was advanced across lesion in the LAD, mid. PTCA balloon inflated at 8 atms for 10 secs. PTCA balloon inflated at 10 atms for 16 secs. Angiogram performed pos t balloon dilatation. orsiro 3.0 x 18 Drug Eluting stent was advanced across the lesion in the LAD, m id. Drug Eluting stent was removed intact, failed to cross lesion Balloon catheter was advanced acros s lesion in the LAD, mid. PTCA balloon inflated at 12 atms for 6 secs. PTCA balloon inflated at 12 at ms for 30 secs. PTCA balloon inflated at 6 atms for 6 secs. Angiogram performed post balloon dilatati on. orsiro 3.0 x 18 Drug Eluting stent was advanced across the lesion in the LAD, mid. Angiogram perf ormed post stent deployment. emerge 1.2 x 8 Balloon catheter was advanced across lesion in the first diagonal, ostial. PTCA balloon inflated at 8 atms for 12 secs. PTCA balloon inflated at 8 atms for 18 secs. PTCA balloon inflated at 8 atms for 11 secs. Angiogram performed post balloon dilat ation. nc euphora 3.0 x 12 Balloon catheter was inserted post stent. Angiogram performed post balloon dilatation. orsiro 3.0 x 30 Drug Eluting stent was advanced across the lesion in the LAD, proximal. nc emerge 3.00 x 8 Balloon catheter was inserted post stent. Angiogram performed post balloon dilatat ion. INTERVENTION INFORMATION LESION SITE: LAD (Mid) Lesion Complexity: High/C, chronic total occlusion: No, lesion at bifurcation: Yes, thrombus present: No, lesion length: 15 mm, culprit lesion: Yes, Previously treated lesion: No Pre Stenosis: 80 % Pre intervention RAFIA flow: 3 PROCEDURE: Drug Eluting Stent with pre and post dilatation Post Stenosis: 0 % Post intervention RAFIA flow: 3 Lesion Devices: Medtronic SC EUPHORA RX 2.5x15 BALLOON [employer] Orsiro [place] MR MEENU 3.0x18 Medtronic NC EUPHORA RX 3.0x12 BALLOON [employer] [place] EMERGE MR 3.00x08 BALLOON LESION SITE: 1st Diagonal (Ostial) Lesion Complexity: High/C, chronic total occlusion: No, lesion at bifurcation: Yes, thrombus present: No, lesion length: 4 mm, culprit lesion: Yes Pre Stenosis: 90 % Pre intervention RAFIA flow: 3 PROCEDURE: Balloon Angioplasty PTCA was performed to improve chances of vessel patency after stent placement in the pLAD that would fpc this small diagonal branch Post Stenosis: 80 % Post intervention RAFIA flow: 3 Lesion Devices: Medtronic NC EUPHORA RX 3.0x12 BALLOON James Sci EMERGE MR 1.20x08 BALLOON LESION SITE: LAD (Proximal) Lesion Complexity: High/C, chronic total occlusion: No, lesion at bifurcation: Yes, thrombus present: No, lesion length: 28 mm, culprit lesion: Yes, Previously treated lesion: No Pre Stenosis: 70 % Pre intervention RAFIA flow: 3 PROCEDURE: Drug Eluting Stent 0 % Post intervention RAFIA flow: 3 COMPLICATIONS No Complications PROCEDURE MEDICATIONS Versed 1 mg IV Fentanyl 50 mcg IV Heparin 4000 unit(s) IV 07/01/2022 10:46:01 Heparin given IA 07/01/2022 10:48:56 Heparin 1000 unit(s) IV 07/01/2022 11:07:33 Verapamil 2.5mg, Ntg 100mcgs, 3000 units of Heparin given IA 07/01/2022 10:48:56 SUMMARY OF HEMODYNAMIC DATA Time AIR REST ECG 10:13:27 AO 75/54 (64) SA 10:45:28 AO 83/55 (67) 10:54:40 RM AIR REST 12:42:48 Signed By Danyell Farfan MD On 07/01/2022 12:57:38 Danyell Farfan MD
--- NOTE | 2022-07-01 13:23 | CRPHASE1 ---
Patient Communication Former Patient:: Phase I PHII Cardiac Rehab Discussed with Patient:: Yes Guide to Cardiac Rehab Given to Patient:: No - Pt received during previous admission Cardiac Rehab Facility Choice List Given to Patient:: No - Pt received during previous admission Choice Program [facility] CR PHII:: Communication Given to CR Multimedia Programmer:: Adelaida Farfan Refer Phase II Cardiac Rehab:: Yes Sessions:: 36 sessions - 3 days/wk, 12 weeks Cardiac Rehabilitation Info Cardiac Rehabilitation Program Information: Cardiac Rehabilitation is important for patients like you who are recovering from a heart problem. Cardiac rehabilitation programs are recognized as integral to the continued care of the patient with coronary heart disease. The cardiac rehabilitation program is designed to optimize a patient's physical, psychological, and social functioning. Health team primary care physician work in cardiac rehabilitation programs and assist you with getting the treatments you need to get stronger and healthier - like exercise, healthy eating habits, and medications. Cardiac rehabilitation has been show to help people with heart problems live longer and have better life enjoyment than people who do not go to cardiac rehabilitation. Please contact the Cardiac Rehabilitation Program at [facility] [place] at in two weeks if you have not heard from them.
--- NOTE | 2022-07-01 13:26 | CRPH1.INST_ITS ---
General Education CAD and cardiac anatomy and function:: Patient communicates acknowledgment, Family communicates acknowledgment Explanation of diagnoses and procedures:: Patient communicates acknowledgment, Family communicates acknowledgment Sign/Symptoms of [place]:: Patient communicates acknowledgment, Family communicates acknowledgment Antiplatelet therapy: Patient communicates acknowledgment, Family communicates acknowledgment Proper use of NTG-SL: Patient communicates acknowledgment, Family communicates acknowledgment Emergency procedures and activation of EMS: Patient communicates acknowledgment, Family communicates acknowledgment Compliance of all prescribed medications: Patient communicates acknowledgment, Family communicates acknowledgment Smoking Patient Nicotine/Smoking Risk Factors Are:: Non-smoker Recommendations Include:: Smoking cessation strategies/Smoking packet, Second- hand smoke recommendation, Participation in a smoking cessation program Nicotine/Smoking Response Code:: Patient communicates acknowledgment, Family communicates acknowledgment Dyslipidemia Patient Dyslipidemia Risk Factors Are:: Total Cholesterol, Triglycerides, HDL, LDL Recommendations Include:: Lipid profile not available, Reviewed NCEP/ATP guidelines, Therapeutic Lifestyle Change dietary guidelines Dyslipidemia Response Code:: Patient communicates acknowledgment, Family communicates acknowledgment Overweight/Obesity Patient Overweight/Obesity Risk Factors Are:: Overweight = 26-29 Recommendations Include:: Weight loss of 5-10%, Reduced calorie diet, Exercise 5-7 times/week Overweight/Obesity:: Patient communicates acknowledgment, Family communicates acknowledgment Hypertension Recommendations Include:: BP <130/80 if diabetic, DASH dietary guidelines, Decrease/maintain normal body weight Hypertension:: Patient communicates acknowledgment, Family communicates acknowledgment Heart Disease Patient Heart Disease Risk Factors Are:: Previous cardiac event Recommendations Include:: Educated family members of their risk Heart Disease Response Code:: Patient communicates acknowledgment, Family communicates acknowledgment Diabetes Patient Diabetes Risk Factors Are:: Elevated blood sugars Recommendations Include:: Maintain fasting blood sugars 70-110 md/dL, Maintain HgbA1c of 6% or less, Monitor blood sugar as prescribed, Diabetic dietary guidelines, Decrease/maintain body weight Diabetes:: Patient communicates acknowledgment, Family communicates acknowledgment Sedentary Patient Sedentary Risk Factors Are:: Lack of regular exercise Recommendations Include:: Aerobic exercise 5-7 times/week for 20-30 minutes continuously, Benefits of regular exercise, Discussed home walking program, Monitored Outpatient Cardiac Rehab Sedentary Response Code:: Patient communicates acknowledgment, Family communicates acknowledgment Stress Patient Stress Risk Factors Are:: Patient denies stress as a risk factor Recommendations Include:: Identification of stressors, and assessment of coping skills, Stress management techniques Stress Response Code:: Patient communicates acknowledgment, Family communicates acknowledgment
[2022-07-01] MEDS: TICAGRELOR 90 MG TABLET PO (22:00)
[2022-07-01] MEDS: Atorvastatin Calcium 20 MG Tablet PO (22:00)
[2022-07-01] MEDS: Carvedilol 3.125 MG TABLET PO (22:00)
[2022-07-02 02:59] VITALS: PULSE 76
[2022-07-02 03:45] VITALS: BP 119/82; PULSE 88; RESP 16; TEMP 36.7; O2SAT 94
[2022-07-02 05:45] LABS: Hematocrit 40.5 % (40-54); Hemoglobin 13.5 g/dL (13.0-16.5); Mean Corp Hgb Conc 33.3 g/dL (32-36); Mean Platelet Vol. 10.3 fl (6.2-12.0); Platelet Count 174 K/mm3 (150-450); RBC Distribution Width CV 12.2 % (11.6-14.6); RBC Distribution Width SD 37.1 fl (35.1-43.9); Red Blood Count 4.82 M/mm3 (4.6-6.2); White Blood Count 8.9 K/mm3 (4.4-11.0)
[2022-07-02 06:18] LABS: AST(SGOT) 26 U/L (15-37); Alanine Aminotransfer ALT/SGPT 45 U/L (16-61); Albumin, Serum 3.2 g/dL (3.2-5.0); Alkaline Phosphatase 49 U/L (45-117); Anion Gap 4 (5-15); BUN 16 mg/dL (7-18); BUN/Creat Ratio 13.7 RATIO (10-20); Calcium,Total 8.6 mg/dL (8.5-10.1); Chloride 106 mmol/L (98-107); Creatinine, Serum 1.17 mg/dL (0.70-1.30); EST Glomerular Filtration Rate 71 mL/min (>60); Est Glom Filt Rate - Afr Amer 86 mL/min (>60); Estimated Creatinine Clearance 78.05 ml/min; Globulin 3.3 g/dL (2.2-4.2); Glucose 241 mg/dL (74-106); Potassium 4.1 mmol/L (3.5-5.1); Protein, Total 6.5 g/dL (6.4-8.2); Sodium Level 139 mmol/L (136-145)
[2022-07-02 07:00] VITALS: PULSE 78
[2022-07-02 07:40] VITALS: O2SAT 93
[2022-07-02 08:05] VITALS: BP 121/82; PULSE 82; RESP 16; TEMP 36.6; O2SAT 95
[2022-07-02] MEDS: LINAGLIPTIN 5 MG TABLET PO (08:07)
[2022-07-02] MEDS: Furosemide 20 MG Tablet PO (08:07)
[2022-07-02] MEDS: Empagliflozin 10 MG Tablet PO (08:08)
[2022-07-02] MEDS: Carvedilol 3.125 MG TABLET PO (08:08)
[2022-07-02] MEDS: Lisinopril 5 MG Tablet PO (08:08)
[2022-07-02] MEDS: Aspirin 81 MG TAB.CHEW PO (08:08)
[2022-07-02] MEDS: TICAGRELOR 90 MG TABLET PO (08:08)
--- NOTE | 2022-07-02 10:52 | PCM.DC ---
Discharge Instructions Diet Discharge Diet: No restrictions Activity Discharge Activity: Return to Normal Activity Additional Activity Instructions:: You must have someone drive you home. Do not drive until instructed by your doctor. You must have someone stay with you all night after your test. Rest in bed or on the couch until the next morning. Limit the number of times you go up and down stairs the day of your test. Apply pressure to the puncture site if you sneeze or cough. Dressing / Incision Call your doctor if your incision/area has: Increased Pain/ Swelling, Increased Redness, Foul Smelling Discharge and Swelling at the incision site Call your doctor if you observe: Fever of 101 or Higher Additional Dressing/Incision Instructions:: Keep the dressing (bandage) on until the next morning. You may then shower, but do not take a tub bath for 5 days after your test. It is normal to have some tenderness and discomfort at the puncture site. Sometimes bruising also occurs. However, if pain, numbness, or coldness occurs below the puncture site (in your leg, toes, arms or fingers) call your doctor at once. You may have a small, marble sized knot at the puncture site. This is normal. Do not rub it. It will go away in 4-6 weeks. Bleeding can occur from the area where the puncture was done. Blood may spurt or drip from the site. If blood spurts, apply pressure right away to stop bleeding and call 911. Although rare, bleeding into the tissue (hematoma) can also occur. If this happens, a large, firm area goose egg under the skin will appear. If any of these occur, lie down as flat as you can and have someone apply firm pressure to the cath site with a gauze pad or a clean washcloth for 10-15 minutes. Call 911 or go to the Emergency Department. Follow Up Care Test Results: Test results from this visit will be discussed in further detail at your follow-up appointment, if applicable. Discharge Plan Admission Admit Date/Time: 07/01/22 12:03 Primary Reason for Your Visit: Stagged PCI Attending Provider: Adelaida Farfan Primary Care Provider: Levi Black Additional Instructions / Restrictions: Do not stop the Brilinta for any reason for at least one year. This is helping keep your stent open. Discharge Orders/Prescriptions Prescriptions: Continued Januvia 100 mg tablet 100 mg PO DAILY Label Comments: TAKE 1 TABLET BY MOUTH EVERY DAY Levemir FlexTouch U-100 Insuln 100 unit/mL (3 mL) insulin pen 70 unit subcut DAILY lisinopril 5 mg tablet 5 mg PO DAILY Invokana 100 mg tablet 100 mg PO DAILY rosuvastatin 10 mg tablet 10 mg PO DAILY aspirin 81 MG tablet,chewable 81 mg PO DAILY@0800 carvedilol 3.125 mg Tablet 3.125 mg PO BID Qty: 180 1RF Brilinta 90 mg Tablet 90 mg PO BID Qty: 180 2RF torsemide 10 mg tablet 10 mg PO DAILY Qty: 30 10RF Referrals / Follow Up: Levi Black DO [Primary Care Provider] - Susie Andujar PA [Med Staff - Adv Practice Prof] - (keep you appt with Dr. Person on 07/08/2022 at 1615) Disposition Disposition (needs filled in before D/C Order can be placed): Home, Self Care
== END 2022-07-02 10:55 | disposition home or self-care (01) ==
LOC: PCU 07-02 07:43
PROVIDERS: Internal Medicine Cardiovascular Disease; Admitting Provider Specialist; PCP Family Medicine; Referring Provider Specialist; Visit Provider Specialist
DX: I42.8 Other cardiomyopathies (principal); I11.0 Hypertensive heart disease with heart failure; I50.22 Chronic systolic (congestive) heart failure; E11.9 Type 2 diabetes mellitus without complications; Z79.4 Long term (current) use of insulin; E78.5 Hyperlipidemia, unspecified; E66.9 Obesity, unspecified; Z79.82 Long term (current) use of aspirin; Z79.899 Other long term (current) drug therapy; K76.0 Fatty (change of) liver, not elsewhere classified; Z68.31 Body mass index [BMI] 31.0-31.9, adult
CPT/HCPCS: C1725 ×6; C1769 ×4; C1887; C1894; 36415; 80048; 80053; 85027; 92921; 92928; 93005; 99152; 99153; 99218; C1874; J7030; J7040; Q9967; C9600; G0378

== ENCOUNTER → 2022-07-31 | Outpatient (CLI) | payer MEDICAID, SELFPAY ==
[2022-07-31 12:16] LABS: AST(SGOT) 25 U/L (15-37); Alanine Aminotransfer ALT/SGPT 46 U/L (16-61); Albumin, Serum 3.6 g/dL (3.2-5.0); Alkaline Phosphatase 53 U/L (45-117); Bilirubin, Direct 0.18 mg/dL (0.00-0.30); Cholesterol 107 mg/dL (200); Globulin 4.1 g/dL (2.2-4.2); High Density Lipoprotein 36 mg/dL; Protein, Total 7.7 g/dL (6.4-8.2); Triglycerides 92 mg/dL; Very Low Density Lipoprotein 18 mg/dL (5-40)
== END | disposition home or self-care (01) ==
PROVIDERS: PCP Family Medicine; Referring Provider Internal Medicine Cardiovascular Disease; Visit Provider Internal Medicine Cardiovascular Disease
DX: E78.00 Pure hypercholesterolemia, unspecified (principal)
CPT/HCPCS: 36415; 80061; 80076

== ENCOUNTER → 2022-11-04 | Outpatient (CLI) | payer MEDICAID, SELFPAY ==
--- NOTE | 2022-11-04 14:58 | ECHOD_ITS ---
Version 2 Reason For Study: HFREF Procedure This was a 2D Doppler, Color Flow transthoracic echocardiogram. Myocardial strain analysis was performed in this exam to aid in the assessment of cardiac function. Exam performed in department. Left Ventricle Moderately dilated left ventricle. The estimated ejection fraction is 25 %. Stage 1 diastolic dysfunction. There is moderate to severe global hypokinesis of the left ventricle. Right Ventricle Normal RV size. Normal systolic function. Atria Normal left atrium. Normal right atrium. Mitral Valve Normal mitral valve. Tricuspid Valve Normal tricuspid valve. Aortic Valve Trisinus/trileaflet aortic valve. Pulmonic Valve Normal pulmonic valve. Great Vessels Normal aortic root. The pulmonary artery is normal size. Normal inferior vena cava. Pericardium/Pleural No pericardial effusion. MMode/2D Measurements & Calculations LVIDd: 6.0 cm IVSd: 1.0 cm Ao root diam: 3.4 cm LVIDs: 4.9 cm LVPWd: 0.79 cm RVDd: 3.2 cm FS: 18.5 % LAV(MOD-bp): 37.5 ml LVAd ap4: 37.4 cm2 LVAd ap2: 38.7 cm2 LAV(MOD-bp) Indexed: 18.4 ml/m2 LVLd ap4: 9.1 cm LVLd ap2: 9.8 cm LAV(MOD-sp2): 42.4 ml EDV(MOD-sp4): 126.3 ml EDV(MOD-sp2): 131.7 ml LAV(MOD-sp4): 33.3 ml EDV(sp4-el): 131.1 ml EDV(sp2-el): 130.5 ml LVAs ap4: 30.6 cm2 LVAs ap2: 28.8 cm2 LVLs ap4: 8.4 cm LVLs ap2: 8.4 cm ESV(MOD-sp4): 92.6 ml ESV(MOD-sp2): 83.0 ml ESV(sp4-el): 95.2 ml ESV(sp2-el): 83.2 ml EF(MOD-sp4): 26.7 % EF(MOD-sp2): 37.0 % EF(sp4-el): 27.3 % SV(MOD-sp4): 33.7 ml SV(MOD-sp2): 48.7 ml SV(sp4-el): 35.8 ml LA dimension(2D): 4.2 cm LA A4 area: 14.7 cm2 RA A4 area: 11.1 cm2 Time Measurements MV dec time: 0.23 sec Doppler Measurements & Calculations MV E max jhoan: 49.3 cm/sec Lat Peak E' Jhoan: 9.4 cm/sec Med Peak E' Jhoan: 4.4 cm/sec MV A max jhoan: 86.7 cm/sec E/E' lat: 5.3 E/E' med: 11.3 MV E/A: 0.57 MV V2 max: 80.2 cm/sec MV dec slope: 212.0 cm/sec2 Ao V2 max: 117.7 cm/sec MV max P.6 mmHg Ao max P.6 mmHg MV V2 mean: 48.4 cm/sec Ao V2 mean: 85.4 cm/sec MV mean P.1 mmHg Ao mean P.3 mmHg MV V2 VTI: 13.9 cm Ao V2 VTI: 19.4 cm AV (velocity ratio): 1.0 LV V1 max: 97.9 cm/sec PA V2 max: 87.1 cm/sec LV V1 max P.8 mmHg PA V2 mean: 63.0 cm/sec LV V1 mean P.0 mmHg LV V1 mean: 65.6 cm/sec LV V1 VTI: 19.9 cm ECHO/Echo Complete Interpretation Summary The estimated ejection fraction is 25 %. There is moderate to severe global hypokinesis of the left ventricle. Stage 1 diastolic dysfunction. The global longitudinal strain is severely abnormal. The global longitudinal st rain = -10.2% (abnormal). Ordering Physician: Christine Davis Referring Physician: Levi Black Performed By: Lissette Richards RCS
== END | disposition home or self-care (01) ==
LOC: CVS 14:52
PROVIDERS: PCP Family Medicine; Visit Provider Nurse Practitioner Gerontology
DX: I50.22 Chronic systolic (congestive) heart failure (principal)
CPT/HCPCS: 93306

== ENCOUNTER → 2023-05-12 | Outpatient (CLI) | payer MEDICAID, SELFPAY ==
--- NOTE | 2023-05-12 07:48 | ECHOL_ITS ---
Reason For Study: ISCHEMIC CMP Procedure This was a limited 2D transthoracic echocardiogram. Myocardial strain analysis was performed in this exam to aid in the assessment of cardiac function. Exam performed in department. Left Ventricle Normal LV size. The left ventricular ejection fraction is 30 %. Moderately severe global left ventricular systolic dysfunction. There is moderate to severe global hypokinesis of the left ventricle. Right Ventricle Normal RV size. Normal systolic function. Atria Normal left atrium. Normal right atrium. Mitral Valve Normal mitral valve. Tricuspid Valve Normal tricuspid valve. Aortic Valve Trisinus/trileaflet aortic valve. Pulmonic Valve Normal pulmonic valve. Great Vessels Normal aortic root. The pulmonary artery is normal size. Normal inferior vena cava. Pericardium/Pleural No pericardial effusion. MMode/2D Measurements & Calculations LVIDd: 5.1 cm IVSd: 0.93 cm LAV(MOD-bp): 36.6 ml LVIDs: 3.9 cm LVPWd: 1.0 cm LAV(MOD-bp) Indexed: 17.6 ml/m2 RVDd: 4.1 cm FS: 23.6 % LAV(MOD-sp2): 41.1 ml LAV(MOD-sp4): 32.5 ml LA A4 area: 14.1 cm2 RA A4 area: 9.9 cm2 ECHO/Echo, Limited Study Interpretation Summary Normal LV size. The left ventricular ejection fraction is 30 %. Moderately severe global left ventricular systolic dysfunction. There is moderate to severe global hypokinesis of the left ventricle. Compared to previous study, the left ventricular systolic function is the same. . The global longitudinal strain = -12.3% (abnormal). The global longitudinal strain is thomas rely abnormal. Ordering Physician: Christine Davis Referring Physician: Levi Black Performed By: Mandy Magaña, AJITH, RVT
== END | disposition home or self-care (01) ==
LOC: CVS 07:45
PROVIDERS: PCP Family Medicine; Referring Provider Nurse Practitioner Gerontology; Visit Provider Nurse Practitioner Gerontology
DX: I25.5 Ischemic cardiomyopathy (principal)
CPT/HCPCS: 93308

== ENCOUNTER → 2023-10-01 | Outpatient (CLI) | payer MEDICAID, SELFPAY ==
[2023-10-01 12:07] LABS: Absolute Lymphocyte Count 1.42 X10^3/uL (0.83-4.51); Absolute Neutrophil Count 4.3 X10^3/uL (2.0-7.7); Basophil# 0.05 X10^3/uL; Basophil% 0.8 % (0-1); Eosinophil# 0.15 X10^3/uL; Eosinophils% 2.3 % (0-5); Hematocrit 46.2 % (40-54); Hemoglobin 15.4 g/dL (13.0-16.5); Lymphocyte # 1.42 X10^3/ul (0.83-4.51); Lymphocyte % 22.2 % (19-41); Mean Corp Hgb Conc 33.3 g/dL (32-36); Mean Corpuscular Hgb 28.9 pg (27.0-32.0); Mean Corpuscular Volume 86.8 fL (80-94); Mean Platelet Vol. 10.6 fl (6.2-12.0); Monocyte# 0.44 X10^3/uL; Monocyte% 6.9 % (0-10); NRBC Flagged by Analyzer 0 % (0-5); Neutrophil # 4.31 X10^3/uL (2.7-7.7); Neutrophil % 67.5 % (47-70); Platelet Count 159 K/mm3 (150-450); RBC Distribution Width CV 13.2 % (11.6-14.6); RBC Distribution Width SD 41.9 fl (35.1-43.9); Red Blood Count 5.32 M/mm3 (4.6-6.2); White Blood Count 6.4 K/mm3 (4.4-11.0)
[2023-10-01 12:36] LABS: AST(SGOT) 23 U/L (15-37); Alanine Aminotransfer ALT/SGPT 32 U/L (16-61); Albumin, Serum 3.8 g/dL (3.2-5.0); Alkaline Phosphatase 57 U/L (45-117); Anion Gap 4 (5-15); BUN 18 mg/dL (7-18); BUN/Creat Ratio 14.8 RATIO (10-20); Calcium,Total 9.1 mg/dL (8.5-10.1); Chloride 109 mmol/L (98-107); Cholesterol 138 mg/dL (200); Creatinine, Serum 1.22 mg/dL (0.70-1.30); EST Glomerular Filtration Rate 67 mL/min (>60); Est Glom Filt Rate - Afr Amer 81 mL/min (>60); Globulin 3.8 g/dL (2.2-4.2); Glucose 160 mg/dL (74-106); High Density Lipoprotein 36 mg/dL; Potassium 4.3 mmol/L (3.5-5.1); Protein, Total 7.6 g/dL (6.4-8.2); Sodium Level 141 mmol/L (136-145); Thyroid Stim Hormone (TSH) 1.35 uIU/mL (0.358-3.74); Triglycerides 118 mg/dL; Very Low Density Lipoprotein 24 mg/dL (5-40)
[2023-10-01 12:40] LABS: Microalbumin,Random Urine 12.3 mg/L (NO RANGE EST.); Microalbumin:Creatinine Ratio 11.5 mg/g CRE (<30 mg/g CRE)
== END | disposition home or self-care (01) ==
LOC: BFHLAB 08:52
PROVIDERS: PCP Family Medicine; Visit Provider Family Medicine
DX: Z00.00 Encounter for general adult medical examination without abnormal findings (principal); E11.3599 Type 2 diabetes mellitus with proliferative diabetic retinopathy without macular edema, unspecified eye
CPT/HCPCS: 36415; 80053; 80061; 82043; 82570; 84443; 85025